=== PATIENT | male | born 1955 | race Asian ===

== ENCOUNTER 2018-12-05 10:36 | Inpatient (IN) | payer BC ==
[2018-12-05] VITALS (17 sets, daily range): BP systolic 74–114; BP diastolic 47–80; TEMP 97.3–97.9; Ht 180.3 cm; Wt 109.4 kg
[~2018-12-05] VITALS: Ht 180.3 cm; Wt 109.4 kg
[2018-12-05 11:08] LABS: PLATELET COUNT 156 K/uL (142-355)
[2018-12-05 11:15] LABS: POTASSIUM 3.2 mmol/L (3.6-5.2); SODIUM 145 mmol/L (136-145)
[2018-12-05] MEDS ORDERED: HM ASPIRIN EC L81 MG PO (11:20)
[2018-12-05] MEDS ORDERED: OMEPRAZOLE20 M1 PO (11:21)
[2018-12-05] MEDS ORDERED: COZAAR100 MG PO (11:28)
[2018-12-05] MEDS ORDERED: LIPITOR10 MG PO (11:28)
[2018-12-06] VITALS (40 sets, daily range): BP systolic 69–102; BP diastolic 40–77; TEMP 98.1–99.5
[2018-12-06 04:04] LABS: PLATELET COUNT 100 K/uL (142-355)
[2018-12-06 04:19] LABS: POTASSIUM 3.7 mmol/L (3.6-5.2); SODIUM 144 mmol/L (136-145)
[2018-12-06 11:34] LABS: POTASSIUM 3.2 mmol/L (3.6-5.2)
[2018-12-06 11:38] LABS: PLATELET COUNT 99 K/uL (142-355)
[2018-12-07] VITALS (13 sets, daily range): BP systolic 68–85; BP diastolic 43–53; TEMP 100.3
== END 2018-12-07 03:02 | disposition short-term general hospital (02) | DRG 371 ==
LOC: ED 10:36 → MED/SURG 13:18 → ICU 12-06 12:00 → MED/SURG 12-06 12:00 → ICU 12-06 12:00
PROVIDERS: Emergency Medicine; ADMIT Family Medicine
DX: A04.72 Enterocolitis due to Clostridium difficile, not specified as recurrent (principal); R65.20 Severe sepsis without septic shock; N17.8 Other acute kidney failure; E87.2 Acidosis; A07.2 Cryptosporidiosis; E86.0 Dehydration; I95.89 Other hypotension; R63.0 Anorexia; E78.49 Other hyperlipidemia; R23.0 Cyanosis
CPT/HCPCS: 36415; 36600; 80053; 81000; 82272; 82550; 82805; 83605; 83630; 84484; 85007; 85027; 87015; 87040; 87045; 87324; 87328; 87329; 87449; 87899; 93005; 94760; 96365; 96374; 96375; 99284; J1265; J2405; J2543; J3490

== ENCOUNTER → 2018-12-07 03:13 | Outpatient (CLI) | payer BC ==
[~2018-12-07 03:13] MED LIST: COZAAR100 MG PO; HM ASPIRIN EC L81 MG PO; LIPITOR10 MG PO; OMEPRAZOLE20 M1 PO
== END | disposition short-term general hospital (02) ==
LOC: AMB 03:13
DX: A04.72 Enterocolitis due to Clostridium difficile, not specified as recurrent (principal); R65.20 Severe sepsis without septic shock; N17.8 Other acute kidney failure; E87.2 Acidosis; A07.2 Cryptosporidiosis; E86.0 Dehydration; I95.89 Other hypotension; R63.0 Anorexia; E78.49 Other hyperlipidemia; R23.0 Cyanosis
CPT/HCPCS: A0425; A0427